=== PATIENT | female | born 1940 | race Caucasian/White ===

== ENCOUNTER → 2018-01-12 | Outpatient (CLI) | payer MEDICARE, BC ==
--- NOTE | 2018-01-12 12:21 | XR ---
EXAMINATION TYPE: XR Hip Complete RT DATE OF EXAM: 01/12/2018 CLINICAL HISTORY: Chronic right hip pain TECHNIQUE: AP and frogleg views of the right hip are obtained. COMPARISON: None. FINDINGS: There is no acute fracture/dislocation evident in the right hip. The joint space in the r ight hip demonstrates mild joint space narrowing and acetabular roof sclerosis compatible with mild f emoral acetabular arthropathy. The overlying soft tissue appears unremarkable. IMPRESSION: There is no acute fracture or dislocation in the right hip. Mild right femoral acetabula r arthropathy.
--- NOTE | 2018-01-12 13:24 | XR ---
EXAMINATION TYPE: XR lumbosacral spine min 4V DATE OF EXAM: 01/12/2018 CLINICAL HISTORY: Back pain TECHNIQUE: Frontal, lateral, and oblique images of the lumbar spine are obtained. COMPARISON: None FINDINGS: There are 5 lumbar type vertebral bodies identified. There is a dextroscoliotic curvature of the lumbar spine. Mild multilevel degenerative changes are seen as small anterior osteophytes, in tervertebral disc space narrowing and facet arthropathy. There is a minimal grade 1 anterolisthesis o f L3 on L4. Overlying radiopaque density presumed to be external to the patient is seen in the latera l image only overlying the L4 vertebral body. Oblique images demonstrate multilevel neural foraminal narrowing on the left and right most pronounce d at L3-4 and L4-L5. Lumbar spine vertebral bodies maintain normal vertebral body heights. Mild ather osclerosis of the abdominal aorta is noted. IMPRESSION: 1. No acute fracture is seen in the lumbar spine. 2. Mild grade 1 anterolisthesis of L3 on L4, likely on a degenerative basis. 3. Mild levoscoliosis and multilevel degenerative change with multilevel neural foraminal narrowing t hat could be further assessed with MRI.
== END | disposition home or self-care (01) ==
LOC: RADXRYALE 10:59
PROVIDERS: ATTEND Internal Medicine
DX: M99.73 Connective tissue and disc stenosis of intervertebral foramina of lumbar region (principal); M43.16 Spondylolisthesis, lumbar region; M47.816 Spondylosis without myelopathy or radiculopathy, lumbar region; M41.86 Other forms of scoliosis, lumbar region; M16.11 Unilateral primary osteoarthritis, right hip
CPT/HCPCS: 72110; 73502